=== PATIENT | female | born 1975 | race Caucasian/White ===

== ENCOUNTER → 2017-11-19 | Outpatient (CLI) | payer BC ==
[2017-11-19 12:30] LABS: ADD MAN DIFF? NO
[2017-11-19 12:33] LABS: WHITE BLOOD COUNT 3.1 10^3/ul (4.8-10.8)
[2017-11-19 12:33] LABS: BASOPHILS % 0.3 % (0.0-2.0); EOSINOPHILS % 0.3 % (0.0-7.0); HEMATOCRIT 30.3 % (37.0-47.0); HEMOGLOBIN 9.6 g/dl (12.0-16.0); LYMPHOCYTES # 1.2 10^3/ul (0.8-2.9); LYMPHOCYTES % 39.2 % (15.0-51.0); MEAN CORPUSCULAR HEMOGLOBIN 24.5 pg (29.0-33.0); MEAN CORPUSCULAR HGB CONC 31.7 g/dl (32.0-37.0); MEAN CORPUSCULAR VOLUME 77.3 fl (82.0-101.0); MEAN PLATELET VOLUME 10.2 fl (7.4-10.4); MONOCYTE # 0.3 10^3/ul (0.3-0.9); MONOCYTES % 10.8 % (0.0-11.0); NEUTROPHIL # 1.5 10^3/ul (1.6-7.5); NEUTROPHILS % 49.1 % (39.0-77.0); PLATELET COUNT 278 10^3/UL (140-415); RED BLOOD COUNT 3.92 10^6/ul (4.20-5.40); RED CELL DISTRIBUTION WIDTH 16.3 % (11.5-14.5)
[2017-11-19 13:08] LABS: ALANINE AMINOTRANSFERASE 26 IU/L (13-69); ALBUMIN 4.7 g/dl (3.3-4.9); ALBUMIN/GLOBULIN RATIO 1.56; ALKALINE PHOSPHATASE 75 IU/L (42-121); ANION GAP 18 (8-16); ASPARTATE AMINO TRANSFERASE 20 IU/L (15-46); BILIRUBIN,INDIRECT 0.4 mg/dl (0-1.1); BILIRUBIN,TOTAL 0.4 mg/dl (0.2-1.3); BLOOD UREA NITROGEN 11 mg/dl (7-20); CALCIUM 8.9 mg/dl (8.4-10.2); CARBON DIOXIDE 23 mmol/L (21-31); CHLORIDE 105 mmol/L (97-110); CHOL/HDL RATIO 3.5 RATIO; CHOLESTEROL 279 mg/dl (100-200); CREATININE 0.58 mg/dl (0.44-1.00); GLUCOSE 93 mg/dl (70-220); HDL CHOLESTEROL 78 mg/dl (34-88); LDL CHOLESTEROL,CALCULATED 184 mg/dl; POTASSIUM 3.5 mmol/L (3.5-5.1); SODIUM 142 mmol/L (135-144); TOTAL PROTEIN 7.7 g/dl (6.1-8.1); TRIGLYCERIDES 83 mg/dl (0-149)
[2017-11-19 14:43] LABS: THYROID STIMULATING HORMONE 0.778 MIU/L (0.465-4.680)
[2017-11-19 15:25] LABS: T4 (THYROXINE) 9.1 ug/dl (5.5-11.0)
== END | disposition home or self-care (01) ==
LOC: LAB 11:55
DX: E03.9 Hypothyroidism, unspecified (principal); E78.5 Hyperlipidemia, unspecified; E55.9 Vitamin D deficiency, unspecified
CPT/HCPCS: 80053; 80061; 82306; 83036; 84436; 84443; 85025

== ENCOUNTER 2017-11-20 16:15 | Observation (INO) | payer BC ==
[2017-11-20 17:03] LABS: ADD MAN DIFF? NO
[2017-11-20 17:08] LABS: WHITE BLOOD COUNT 3.1 10^3/ul (4.8-10.8)
[2017-11-20 17:08] LABS: BASOPHILS % 0.3 % (0.0-2.0); HEMATOCRIT 29.2 % (37.0-47.0); LYMPHOCYTES # 1.4 10^3/ul (0.8-2.9); LYMPHOCYTES % 45.2 % (15.0-51.0); MEAN CORPUSCULAR HEMOGLOBIN 24.1 pg (29.0-33.0); MEAN CORPUSCULAR HGB CONC 30.8 g/dl (32.0-37.0); MEAN CORPUSCULAR VOLUME 78.3 fl (82.0-101.0); MONOCYTE # 0.4 10^3/ul (0.3-0.9); MONOCYTES % 11.3 % (0.0-11.0); NEUTROPHIL # 1.3 10^3/ul (1.6-7.5); NEUTROPHILS % 42.2 % (39.0-77.0); PLATELET COUNT 274 10^3/UL (140-415); RED BLOOD COUNT 3.73 10^6/ul (4.20-5.40); RED CELL DISTRIBUTION WIDTH 16.5 % (11.5-14.5)
[2017-11-20 17:26] LABS: ALANINE AMINOTRANSFERASE 27 IU/L (13-69); ALBUMIN 4.3 g/dl (3.3-4.9); ALBUMIN/GLOBULIN RATIO 1.43; ALKALINE PHOSPHATASE 71 IU/L (42-121); ANION GAP 12 (8-16); ASPARTATE AMINO TRANSFERASE 18 IU/L (15-46); BILIRUBIN,INDIRECT 0.2 mg/dl (0-1.1); BILIRUBIN,TOTAL 0.2 mg/dl (0.2-1.3); BLOOD UREA NITROGEN 9 mg/dl (7-20); CALCIUM 8.9 mg/dl (8.4-10.2); CARBON DIOXIDE 26 mmol/L (21-31); CHLORIDE 106 mmol/L (97-110); CREATINE KINASE 78 IU/L (23-200); GLUCOSE 94 mg/dl (70-220); POTASSIUM 3.4 mmol/L (3.5-5.1); SODIUM 141 mmol/L (135-144); TOTAL PROTEIN 7.3 g/dl (6.1-8.1)
[2017-11-20 17:30] LABS: INR 0.91; PROTIME 12.3 Sec (11.9-14.9)
[2017-11-20] MEDS ORDERED: ONDANSETRON 4 MG INJ IV (17:30)
[2017-11-20] MEDS ORDERED: ACETAMINOPHEN 325 MG TAB PO (17:30)
[2017-11-20 17:31] LABS: PARTIAL THROMBOPLASTIN TIME 26.5 Sec (25.0-35.0)
[2017-11-20 17:38] LABS: B-TYPE NATRIURETIC PEPTIDE 11 PG/ML (0-125); CK INDEX 0.3; CK-MB < 0.22 ng/ml (0.0-2.4); TROPONIN-I < 0.010 ng/ml (0.000-0.120)
[2017-11-20] MEDS ORDERED: NITROGLYCERIN (SL) 0.4 MG TAB (19:19)
[2017-11-20] MEDS: NITROGLYCERIN (SL) 0.4 MG TAB SL (19:23)
[2017-11-20] MEDS: ASPIRIN 81 MG TAB PO (19:23)
[2017-11-20] MEDS: DIPHENHYDRAMINE 25 MG CAP PO (20:21)
[2017-11-20] MEDS: POTASSIUM CHLORIDE (SR) 20 MEQ TAB PO (20:22)
[2017-11-20] MEDS: MONTELUKAST 10 MG TAB PO (20:22)
[2017-11-20] MEDS: ATORVASTATIN 40 MG TAB PO (20:22)
[2017-11-20] MEDS: ACETAMINOPHEN 500 MG TAB PO (23:33)
[2017-11-21] MEDS: LORAZEPAM 0.5 MG TAB PO (02:13)
[2017-11-21] MEDS: PANTOPRAZOLE (EC) 40 MG TAB PO (05:51)
[2017-11-21 08:44] LABS: ADD MAN DIFF? NO
[2017-11-21 08:49] LABS: WHITE BLOOD COUNT 2.8 10^3/ul (4.8-10.8)
[2017-11-21 08:49] LABS: BASOPHILS % 0.4 % (0.0-2.0); EOSINOPHILS % 1.4 % (0.0-7.0); HEMATOCRIT 29.5 % (37.0-47.0); HEMOGLOBIN 8.9 g/dl (12.0-16.0); LYMPHOCYTES # 1.2 10^3/ul (0.8-2.9); LYMPHOCYTES % 42.8 % (15.0-51.0); MEAN CORPUSCULAR HEMOGLOBIN 23.4 pg (29.0-33.0); MEAN CORPUSCULAR HGB CONC 30.2 g/dl (32.0-37.0); MEAN CORPUSCULAR VOLUME 77.6 fl (82.0-101.0); MEAN PLATELET VOLUME 11.2 fl (7.4-10.4); MONOCYTE # 0.3 10^3/ul (0.3-0.9); MONOCYTES % 10.2 % (0.0-11.0); NEUTROPHIL # 1.3 10^3/ul (1.6-7.5); NEUTROPHILS % 45.2 % (39.0-77.0); PLATELET COUNT 264 10^3/UL (140-415); RED CELL DISTRIBUTION WIDTH 16.5 % (11.5-14.5)
[2017-11-21] MEDS: ASPIRIN 81 MG TAB GTB (08:52)
[2017-11-21] MEDS: MONTELUKAST 10 MG TAB PO (08:52)
[2017-11-21] MEDS ORDERED: PATIENT'S OWN MEDICATION PO (09:00)
[2017-11-21 09:29] LABS: ANION GAP 15 (8-16); BLOOD UREA NITROGEN 9 mg/dl (7-20); CALCIUM 8.8 mg/dl (8.4-10.2); CARBON DIOXIDE 24 mmol/L (21-31); CHLORIDE 106 mmol/L (97-110); CREATININE 0.54 mg/dl (0.44-1.00); GLUCOSE 96 mg/dl (70-220); MAGNESIUM 2.2 mg/dl (1.7-2.5); POTASSIUM 3.8 mmol/L (3.5-5.1); SODIUM 141 mmol/L (135-144)
[2017-11-21 09:41] LABS: TROPONIN-I < 0.010 ng/ml (0.000-0.120)
== END 2017-11-21 16:05 | disposition home or self-care (01) ==
LOC: MS4 18:35 → E/R 16:15 → MS4 17:03
DX: R07.89 Other chest pain (principal); E78.5 Hyperlipidemia, unspecified; R73.03 Prediabetes; D50.9 Iron deficiency anemia, unspecified
CPT/HCPCS: 80048; 80053; 82550; 82553; 83735; 83880; 84484; 85025; 85610; 85730; 93005; 93306; 99285-25; G0378

== ENCOUNTER → 2018-01-09 | Outpatient (CLI) | payer BC ==
[2018-01-09 13:27] LABS: WHITE BLOOD COUNT 3.8 10^3/ul (4.8-10.8)
[2018-01-09 13:27] LABS: ADD MAN DIFF? NO; EOSINOPHILS % 0.3 % (0.0-7.0); HEMATOCRIT 29.9 % (37.0-47.0); HEMOGLOBIN 9.1 g/dl (12.0-16.0); LYMPHOCYTES # 1.3 10^3/ul (0.8-2.9); LYMPHOCYTES % 34.9 % (15.0-51.0); MEAN CORPUSCULAR HEMOGLOBIN 23.4 pg (29.0-33.0); MEAN CORPUSCULAR HGB CONC 30.4 g/dl (32.0-37.0); MEAN CORPUSCULAR VOLUME 76.9 fl (82.0-101.0); MEAN PLATELET VOLUME 10.1 fl (7.4-10.4); MONOCYTE # 0.3 10^3/ul (0.3-0.9); MONOCYTES % 7.9 % (0.0-11.0); NEUTROPHIL # 2.2 10^3/ul (1.6-7.5); NEUTROPHILS % 56.6 % (39.0-77.0); PLATELET COUNT 310 10^3/UL (140-415); RED BLOOD COUNT 3.89 10^6/ul (4.20-5.40); RED CELL DISTRIBUTION WIDTH 17.2 % (11.5-14.5)
[2018-01-09 13:48] LABS: ALANINE AMINOTRANSFERASE 27 IU/L (13-69); ALBUMIN 4.6 g/dl (3.3-4.9); ALBUMIN/GLOBULIN RATIO 1.43; ALKALINE PHOSPHATASE 66 IU/L (42-121); ANION GAP 17 (8-16); ASPARTATE AMINO TRANSFERASE 24 IU/L (15-46); BILIRUBIN,INDIRECT 0.2 mg/dl (0-1.1); BILIRUBIN,TOTAL 0.2 mg/dl (0.2-1.3); BLOOD UREA NITROGEN 11 mg/dl (7-20); CALCIUM 9.3 mg/dl (8.4-10.2); CARBON DIOXIDE 26 mmol/L (21-31); CHLORIDE 102 mmol/L (97-110); GLUCOSE 94 mg/dl (70-220); POTASSIUM 3.4 mmol/L (3.5-5.1); SODIUM 142 mmol/L (135-144); TOTAL PROTEIN 7.8 g/dl (6.1-8.1)
[2018-01-09 14:19] LABS: CANCER ANTIGEN 125 14.5 U/ml (0.0-35.0); CARCINOEMBRYONIC ANTIGEN 0.5 ng/ml (0.0-5.0)
[2018-01-09 22:42] LABS: RHEUMATOID FACTOR POSITIVE (NEGATIVE)
[2018-01-10 14:21] LABS: ANA SCREEN NEGATIVE (NEGATIVE)
[2018-01-10 16:36] LABS: ESTRADIOL 118 pg/mL
== END | disposition home or self-care (01) ==
LOC: LAB 13:04
DX: D64.9 Anemia, unspecified (principal); Z78.0 Asymptomatic menopausal state; M06.9 Rheumatoid arthritis, unspecified; C80.1 Malignant (primary) neoplasm, unspecified
CPT/HCPCS: 80053; 82378; 82670; 85025; 85651; 86038; 86304; 86430

== ENCOUNTER → 2018-02-26 | Outpatient (CLI) | payer BC ==
[2018-02-26 11:35] LABS: ADD MAN DIFF? NO; BASOPHILS % 0.3 % (0.0-2.0); EOSINOPHILS % 0.3 % (0.0-7.0); HEMATOCRIT 32.1 % (37.0-47.0); HEMOGLOBIN 9.9 g/dl (12.0-16.0); LYMPHOCYTES # 1.1 10^3/ul (0.8-2.9); LYMPHOCYTES % 35.1 % (15.0-51.0); MEAN CORPUSCULAR HEMOGLOBIN 24.8 pg (29.0-33.0); MEAN CORPUSCULAR HGB CONC 30.8 g/dl (32.0-37.0); MEAN CORPUSCULAR VOLUME 80.3 fl (82.0-101.0); MEAN PLATELET VOLUME 9.6 fl (7.4-10.4); MONOCYTE # 0.2 10^3/ul (0.3-0.9); MONOCYTES % 7.3 % (0.0-11.0); NEUTROPHIL # 1.8 10^3/ul (1.6-7.5); PLATELET COUNT 260 10^3/UL (140-415); RED CELL DISTRIBUTION WIDTH 18.9 % (11.5-14.5)
[2018-02-26 11:35] LABS: WHITE BLOOD COUNT 3.2 10^3/ul (4.8-10.8)
[2018-02-26 12:01] LABS: ALANINE AMINOTRANSFERASE 27 IU/L (13-69); ALBUMIN 3.9 g/dl (3.3-4.9); ALBUMIN/GLOBULIN RATIO 1.25; ALKALINE PHOSPHATASE 67 IU/L (42-121); ASPARTATE AMINO TRANSFERASE 21 IU/L (15-46); BILIRUBIN,INDIRECT 0.3 mg/dl (0-1.1); BILIRUBIN,TOTAL 0.3 mg/dl (0.2-1.3); BLOOD UREA NITROGEN 11 mg/dl (7-20); CALCIUM 9.1 mg/dl (8.4-10.2); CARBON DIOXIDE 29 mmol/L (21-31); CHLORIDE 105 mmol/L (97-110); CHOL/HDL RATIO 2.9 RATIO; CHOLESTEROL 218 mg/dl (100-200); GLUCOSE 96 mg/dl (70-220); HDL CHOLESTEROL 74 mg/dl (34-88); LDL CHOLESTEROL,CALCULATED 126 mg/dl; POTASSIUM 3.8 mmol/L (3.5-5.1); SODIUM 141 mmol/L (135-144); TRIGLYCERIDES 90 mg/dl (0-149)
[2018-02-26 12:21] LABS: T4 (THYROXINE) 7.4 ug/dl (5.5-11.0)
[2018-02-26 12:34] LABS: THYROID STIMULATING HORMONE 0.978 MIU/L (0.465-4.680)
[2018-02-26 12:38] LABS: FERRITIN 5.2 ng/ml (6.2-137.0)
[2018-02-26 12:50] LABS: ERYTHROCYTE SEDIMENTATION RATE 10 mm/Hr (0-20)
[2018-02-26 13:56] LABS: HEMOGLOBIN A1C 5.5 % (0-5.9)
[2018-02-27 09:09] LABS: ANION GAP 7 (5-13)
== END | disposition home or self-care (01) ==
LOC: C/S 11:02
DX: J32.9 Chronic sinusitis, unspecified (principal); E03.9 Hypothyroidism, unspecified; R73.03 Prediabetes; D50.9 Iron deficiency anemia, unspecified; E27.40 Unspecified adrenocortical insufficiency
CPT/HCPCS: 70450; 70486; 80053; 80061; 82533; 82728; 83036; 84436; 84443; 85025; 85651

== ENCOUNTER → 2018-08-29 | Outpatient (CLI) | payer BC ==
[2018-08-29 12:20] LABS: ADD MAN DIFF? NO
[2018-08-29 12:29] LABS: BASOPHILS % 0.3 % (0.0-2.0); EOSINOPHILS % 0.9 % (0.0-7.0); HEMATOCRIT 32.6 % (37.0-47.0); HEMOGLOBIN 9.9 g/dl (12.0-16.0); LYMPHOCYTES # 1.1 10^3/ul (0.8-2.9); LYMPHOCYTES % 32.1 % (15.0-51.0); MEAN CORPUSCULAR HEMOGLOBIN 24.9 pg (29.0-33.0); MEAN CORPUSCULAR HGB CONC 30.4 g/dl (32.0-37.0); MEAN CORPUSCULAR VOLUME 82.1 fl (82.0-101.0); MEAN PLATELET VOLUME 10.6 fl (7.4-10.4); MONOCYTE # 0.3 10^3/ul (0.3-0.9); MONOCYTES % 9.5 % (0.0-11.0); NEUTROPHIL # 1.9 10^3/ul (1.6-7.5); NEUTROPHILS % 56.9 % (39.0-77.0); PLATELET COUNT 328 10^3/UL (140-415); RED BLOOD COUNT 3.97 10^6/ul (4.20-5.40); RED CELL DISTRIBUTION WIDTH 17.5 % (11.5-14.5)
[2018-08-29 12:29] LABS: WHITE BLOOD COUNT 3.3 10^3/ul (4.8-10.8)
[2018-08-29 12:47] LABS: HEMOGLOBIN A1C 5.5 % (0-5.9)
[2018-08-29 12:48] LABS: ALANINE AMINOTRANSFERASE 21 IU/L (13-69); ALBUMIN 4.6 g/dl (3.3-4.9); ALBUMIN/GLOBULIN RATIO 1.64; ALKALINE PHOSPHATASE 69 IU/L (42-121); ANION GAP 12 (5-13); ASPARTATE AMINO TRANSFERASE 23 IU/L (15-46); BILIRUBIN,INDIRECT 0.4 mg/dl (0-1.1); BILIRUBIN,TOTAL 0.4 mg/dl (0.2-1.3); BLOOD UREA NITROGEN 14 mg/dl (7-20); CALCIUM 9.3 mg/dl (8.4-10.2); CARBON DIOXIDE 27 mmol/L (21-31); CHLORIDE 103 mmol/L (97-110); CHOL/HDL RATIO 3.8 RATIO; CHOLESTEROL 215 mg/dl (100-200); CREATININE 0.54 mg/dl (0.44-1.00); Estimated GFR > 60 mL/min (>60); GLUCOSE 92 mg/dl (70-220); HDL CHOLESTEROL 56 mg/dl (34-88); LDL CHOLESTEROL,CALCULATED 147 mg/dl; POTASSIUM 4.1 mmol/L (3.5-5.1); SODIUM 142 mmol/L (135-144); TOTAL PROTEIN 7.4 g/dl (6.1-8.1); TRIGLYCERIDES 58 mg/dl (0-149)
[2018-08-29 13:02] LABS: FREE T4 (FREE THYROXINE) 1.21 ng/dl (0.64-1.79)
[2018-08-29 13:03] LABS: T4 (THYROXINE) 8.7 ug/dl (5.5-11.0)
[2018-08-29 13:21] LABS: FERRITIN 6.9 ng/ml (6.2-137.0)
[2018-08-29 13:29] LABS: ERYTHROCYTE SEDIMENTATION RATE 18 mm/Hr (0-20)
[2018-08-29 13:30] LABS: THYROID STIMULATING HORMONE < 0.015 MIU/L (0.465-4.680)
== END | disposition home or self-care (01) ==
LOC: LAB 11:59
DX: E03.9 Hypothyroidism, unspecified (principal); R73.03 Prediabetes; E78.5 Hyperlipidemia, unspecified
CPT/HCPCS: 80053; 80061; 82728; 83036; 84436; 84439; 84443; 85025; 85651